=== PATIENT | male | born 1960 | race Caucasian/White ===

== ENCOUNTER 2018-09-24 07:08 | Outpatient (CLI) | payer OTHER ==
--- NOTE | 2018-09-24 07:42 | ULT ---
Sonogram right upper quadrant HISTORY: Right upper quadrant pain. FINDINGS: Nonshadowing echogenic sludge is present within the dependent portion of the gallbladder nas men. No gallbladder wall thickening or pericholecystic fluid. Common duct is 0.46. Liver is diffusely echogenic without focal mass or intrahepatic biliary dilatation. No free fluid. A 0.9 cm si mple cyst is incidentally noted along the anterior margin of the pancreatic neck IMPRESSION: Biliary sludge within the gallbladder. Evidence of a chronic gallbladder dyskinesis. No e vidence of acute biliary obstruction. Hepatosteatosis.
== END 2018-09-24 07:09 | disposition home or self-care (01) ==
LOC: SCSULT 07:08
PROVIDERS: ATTEND Family Medicine
DX: R10.13 Epigastric pain (principal); K83.8 Other specified diseases of biliary tract; K76.0 Fatty (change of) liver, not elsewhere classified
CPT/HCPCS: 76705

== ENCOUNTER 2018-10-02 12:11 | Outpatient (CLI) | payer OTHER ==
--- NOTE | 2018-10-02 16:50 | NM ---
HEPATOBILIARY SCAN: DATE: 10/02/18 HISTORY: Epigastric pain with sludge in the gallbladder on ultrasound of 09/24/18. RADIOPHARMACEUTICAL: 5.3 mCi technetium-99m mebrofenin injected intravenously. FINDINGS: There is good tracer extraction by the liver with prompt excretion into the biliary tract and small b owel loops, and normal filling of the gallbladder. The calculated gallbladder ejection fraction following an oral fatty meal measures 12%. IMPRESSION: Gallbladder dyskinesia/chronic acalculous cholecystitis. POS: OFF
== END 2018-10-02 12:12 | disposition home or self-care (01) ==
LOC: NM 12:11
PROVIDERS: ATTEND Family Medicine
DX: R10.13 Epigastric pain (principal); K82.8 Other specified diseases of gallbladder; K81.1 Chronic cholecystitis
CPT/HCPCS: 78227; A9537

== ENCOUNTER 2018-10-14 05:52 | Day surgery (SDC) | payer OTHER ==
[2018-10-13 13:15] VITALS: BMI 34.4
[2018-10-14] MEDS ORDERED: Ketorolac Tromethamine 30 MG/ML VIAL ONE (06:34)
[2018-10-14] MEDS ORDERED: Fentanyl 250 MCG/5 ML VIAL ONE (06:41)
[2018-10-14] MEDS ORDERED: Bupivacaine/Epinephrine 0.25% 30 ML VIAL ONE (06:46)
[2018-10-14] MEDS ORDERED: Iothalamate Meglumine 60% 50 ML VIAL FS ONE (08:07)
--- NOTE | 2018-10-14 08:40 | RAD ---
XR Cholangiogram in Surgery History: Epigastric pain Comparison: Nuclear medicine study September 2018 Findings: There is mild dilatation of the extrahepatic biliary system. Small filling defects distal c ommon bile duct. Impression: Small filling defects distal common bile duct. Mild extrahepatic biliary dilatation.
[2018-10-14] MEDS ORDERED: Fentanyl 100 MCG/2 ML VIAL ONE ×2 (09:27→09:28)
[2018-10-14] MEDS ORDERED: Ondansetron ODT 4 MG TAB ONE (11:03)
--- NOTE | 2018-10-14 18:06 | OP ---
DATE OF PROCEDURE: 10/14/2018 PREOPERATIVE DIAGNOSES: Symptomatic biliary sludge with biliary dyskinesia. POSTOPERATIVE DIAGNOSES: Symptomatic biliary sludge with biliary dyskinesia with dilated cystic duct. OPERATIONS PERFORMED: Laparoscopic cholecystectomy with intraoperative cholangiogram. ANESTHESIA: General endotracheal. INDICATIONS: The patient is a 58-year-old obese white male. He presents with symptoms referable to his gallbladder. Ultrasound reveals biliary sludge and HIDA scan reveals a diminished ejection fraction. He was taken to the operative room at this time for laparoscopic cholecystectomy. Although his bilirubin level is normal, he has mild elevation of his remaining liver function test. DESCRIPTION OF OPERATION: Informed consent was obtained, the patient was taken to the operating room, where general endotracheal anesthesia was obtained with the patient in supine position. Abdomen was prepped with ChloraPrep and draped in sterile fashion. Local anesthetic was infiltrated using 0.25% Marcaine with epinephrine and an 11-mm infraumbilical incision was created through which a Veress needle was passed in the peritoneal cavity. Pneumoperitoneum was established using carbon dioxide up to pressure of 15 mmHg. An 11 mm trocar port was passed through the same incision. Laparoscopic camera was passed this port. Under direct vision, 3 additional 5 mm right upper quadrant ports were placed in usual location. The gallbladder was grasped and retracted in a cephalad direction. Infundibulum was grasped retracted laterally and inferiorly. There was extensive fatty tissue around and investing the gallbladder. This was dissected in order to gain access to the cystic duct and cystic artery. I was able to identify and divide the cystic artery fairly quickly, leaving two clips on the side to remain within the abdomen. As I dissected further, the cystic duct appeared to be dilated. I therefore decided to perform a cholangiogram. Clip was placed proximally. The duct was incised and cholangiocath was passed through the ductotomy. Cholangiogram was obtained revealing at least a 2 inch long cystic duct that did not appear to be significantly dilated. The common duct; however, did appear to be dilated, although it emptied quickly into the duodenum. There was no evidence of any filling defects. The cystic duct appeared to have a little bulbous dilatation just distal to my ductotomy. I tried milking to see if there was any stones there that would milk retrograde, there were none. I carried the incision further down onto the duct and again the tissue appeared to be somewhat thickened, but there was no evidence of intraluminal abnormality. The duct was divided, leaving two clips on the distal aspect. I was not at all sure that this appropriately ligated the duct and I therefore ligated further with a PDS Endoloop tie. Because of difficulty in seeing this area, given all of the retroperitoneal fat in this area. I had to place an additional 5 mm port in the upper abdomen to allow visualization of this area. After the duct was ligated appropriately. The gallbladder was dissected the gallbladder fossa using electrocautery and removed through the umbilical port site. Fascia was closed with 0 Vicryl suture using a GraNee needle. Right upper quadrant was extensively irrigated. All irrigant was aspirated. There was no evidence of any bleeding or bile leak. All ports were removed under direct vision. Pneumoperitoneum carefully evacuated. A 0.25% Marcaine with epinephrine substrates port site. Skin edges approximated with 4-0 Monocryl subcuticular suture. Dermabond was placed externally over each of the 5 port site incisions. There were no complications. The patient tolerated the procedure well and was taken to recovery in stable condition. Job ID: [id number]
== END 2018-10-14 11:16 | disposition home or self-care (01) ==
LOC: SDC 05:52
PROVIDERS: ATTEND Specialist
PROC: 0FT44ZZ Resection of Gallbladder, Percutaneous Endoscopic Approach (ICD-10-PCS; principal; 2018-10-14)
PROC: BF101ZZ Fluoroscopy of Bile Ducts using Low Osmolar Contrast (ICD-10-PCS; principal; 2018-10-14)
DX: K81.1 Chronic cholecystitis (principal); K82.8 Other specified diseases of gallbladder; K83.8 Other specified diseases of biliary tract; E78.5 Hyperlipidemia, unspecified; I10 Essential (primary) hypertension; E03.9 Hypothyroidism, unspecified; N40.0 Benign prostatic hyperplasia without lower urinary tract symptoms; E66.9 Obesity, unspecified; Z68.34 Body mass index [BMI] 34.0-34.9, adult; Z79.899 Other long term (current) drug therapy; Z98.890 Other specified postprocedural states
CPT/HCPCS: 47532; 88304; J0131; J0690; J1885; J3010; Q0162; Q9961

== ENCOUNTER 2019-02-10 10:42 | Inpatient (IN) | payer OTHER ==
[2019-02-10] MEDS ORDERED: Morphine 4 MG/ML VIAL ONE ×2 (11:10→13:28)
[2019-02-10] MEDS ORDERED: Ondansetron PF 4 MG/2 ML Vial ONE (11:10)
--- NOTE | 2019-02-10 12:38 | ULT ---
RIGHT UPPER QUADRANT ULTRASOUND: HISTORY: Right upper quadrant pain. FINDINGS: Real-time imaging of the right upper quadrant shows the gallbladder to have been removed. The common duct is very difficult to visualize. The extrahepatic portion of the duct measures in the 1 cm range , which is compatible with post cholecystectomy change. The liver is densely echogenic without any fo marquez mass demonstrated. The right kidney is normal in size and not obstructed. IMPRESSION: 1. Postoperative cholecystectomy change with mild prominence to the extrahepatic common duct, probabl y just on the basis of cholecystectomy. 2. Fatty change of the liver. POS: MOIZ
[2019-02-10 13:09] LABS: ALT (SGPT) 580 U/L (8-55); AST (SGOT) 489 U/L (5-34); Albumin 4.7 g/dL (3.5-5.0); Alkaline Phosphatase 237 U/L (40-110); Bilirubin, Direct 3.7 mg/dL (0.1-0.3); Bilirubin, Total 5.4 mg/dL (0.2-1.2); Protein, Total 8.1 g/dL (6.0-8.3)
[2019-02-10 13:30] LABS: HBCM Index 0.05 S/CO (0-0.79); HBSAg Index 0.14 S/CO (0-0.99); Hep A IgM AB Non-Reactive (NonReactive); Hep A IgM S/CO 0.08 S/CO (0-0.79); Hep B Surf Ag Non-Reactive S/CO (NonReactive); Hep C IgG Ab Non-Reactive (NonReactive); Hep C Index 0.05 S/CO (0-0.79); Hepatitis B Core IgM Abs Non-Reactive (NonReactive)
[2019-02-10] MEDS ORDERED: Acetaminophen 325 MG TAB PO PRN (13:54)
--- NOTE | 2019-02-10 14:44 | HP ---
REASON FOR ADMISSION: 1. Possible choledocholithiasis. 2. Abdominal pain. 3. Moderate dehydration. 4. Elevated LFTs. HISTORY OF PRESENT ILLNESS: The patient gives history of having epigastric pain from yesterday morning off and on. This was progressively getting worse. It was colicky pain. He does mention that a week back, he had a small episode of colic which got resolved by itself. As this pain got worse this morning, he went to [facility] from where he was transferred here. He has had prior history of laparoscopic cholecystectomy done in October 2018. No prior history of pancreatitis. Mr. Plasencia also mentions that he has been dry heaving from Saturday morning and has not been eating well or drinking much. Last bowel movement was yesterday when he had nearly 4 episodes in the morning and none after that. He has not passed any flatus after yesterday afternoon. PAST MEDICAL AND SURGICAL HISTORY: 1. History of hypertension. 2. Dyslipidemia. 3. Hypothyroidism. 4. Benign prostatic hypertrophy. 5. GERD. 6. 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 7. Laparoscopic cholecystectomy in September 2018. 8. Dental surgeries. 9. Tonsillectomy. CURRENT MEDICATIONS: 1. He takes Synthroid 125 mcg p.o. daily. 2. Norvasc 5 mg p.o. q.p.m. 3. Flomax 0.4 mg p.o. q.p.m. 4. Pravastatin 40 mg p.o. daily. 5. Omeprazole 40 mg daily p.r.n. ALLERGIES: NO KNOWN DRUG ALLERGIES. PERSONAL HISTORY: He states he quit smoking recently. Does not abuse drugs. Drinks on social occasions. He lives alone. FAMILY HISTORY: Mother at the age of 79 years. Father of prostate cancer and its complications at the age of 86. CODE STATUS: Full. Power of senior trial attorney is his daughter, Ms. Marychuy Plasencia. She lives in [place]. REVIEW OF SYSTEMS: CONSTITUTIONAL: Negative for weight loss or gain, ability to conduct usual activities. SKIN: Negative for rash, itching. EYES: Negative for double vision, pain. ENT/MOUTH: Negative for nose bleeding, neck stiffness, pain, tenderness. CARDIOVASCULAR: Negative for palpitations, dyspnea on exertion, orthopnea. RESPIRATORY: Negative for shortness of breath, wheezing, cough, hemoptysis, fever or night sweats. GASTROINTESTINAL: Negative for poor appetite, abdominal pain, heartburn, nausea , vomiting, constipation, or diarrhea. GENITOURINARY: Negative for urgency, frequency, dysuria, nocturia. MUSCULOSKELETAL: Negative for pain, swelling. NEUROLOGIC/PSYCHIATRIC: Negative for anxiety, depression. ALLERGY/IMMUNOLOGIC: Negative for skin rash, bleeding tendency. PHYSICAL EXAMINATION: GENERAL: The patient is a 58-year-old male, who is currently in mild-to- moderate distress from abdominal colic. VITAL SIGNS: Blood pressure 136/84, pulse 86 per minute, respiratory rate 22 per minute, temperature 97.9 degrees Fahrenheit, saturating 91% on 4 L oxygen. NECK: Supple. No elevated JVD. HEENT: Eyes; extraocular muscles intact. Pupils reacting to light. Oral cavity, mucous membranes are dry. No exudates or congestion. CARDIOVASCULAR SYSTEM: S1-S2 heard. Regular rhythm. RESPIRATORY SYSTEM: Air entry 1+ bilateral. The patient has shallow breathing due to abdominal pain. No rales or rhonchi. ABDOMEN: Mildly distended. There is tenderness in the epigastric area. No rebound or guarding. EXTREMITIES: No peripheral edema or calf tenderness. VASCULAR SYSTEM: Peripheral pulses 1+ bilateral. No ischemic ulcerations or gangrene. CENTRAL NERVOUS SYSTEM: No gross focal deficits noted. The patient is alert, awake, oriented well. PSYCHIATRIC SYSTEM: The patient's mood is euthymic. No hallucinations or delusions. LABORATORY DATA: Sodium 136, serum bicarb 27, BUN 12, creatinine 0.9, total bilirubin 4.0, AST 479, ALT 575, alkaline phosphatase 243, direct bilirubin is 3.7, albumin is 4.7, lipase is 76. White count 11, hemoglobin 15, hematocrit 47, platelet count 373 with 83% neutrophils. D-dimer was 0.57. Acute hepatitis panel was negative. IMAGING STUDIES: CT angio chest done showed no evidence of PE. CT abdomen and pelvis without contrast done showed no acute pathology. Cholecystectomy clips in the gallbladder fossa. Liver showed no abnormalities. Right upper quadrant ultrasound done showed postop cholecystectomy change seen, mild prominence of extrahepatic common duct, it was measuring 1 cm in range, fatty change of liver. EKG done shows normal sinus rhythm at 94 beats per minute. CLINICAL IMPRESSION AND PLAN: The patient will be admitted to medical floor for possible acute choledocholithiasis with severe abdominal colic and elevated LFTs. His cholangiogram done after laparoscopic cholecystectomy in September 2018 showed small filling defects in the distal common bile duct. His imaging studies have not revealed significant common bile duct dilatation. Dr. Reuben Vallecillo has spoken to Dr. Julio César Olivas for Gastroenterology consultation. We will keep him n.p.o. He will be on morphine p.r.n. for pain. Gentle hydration with normal saline at 100 mL/ h. He will be kept n.p.o. except for Synthroid and Flomax. DuoNeb q.6 hourly. Please note the patient has not passed flatus from yesterday afternoon and has mild distention of his abdomen as well, this will be closely monitored. There are no obvious signs of small bowel obstruction on the CAT scan done. Job ID: [id number] [facility]
[2019-02-10] MEDS: Sodium Chloride 0.9% 1,000 ML IV SCH (15:13)
[2019-02-10] MEDS: Ondansetron PF 4 MG/2 ML Vial IVP PRN ×2 (15:13→22:27)
[2019-02-10 16:09] VITALS: BMI 21.5
[2019-02-10] MEDS ORDERED: Lorazepam 2 MG/ML VIAL SLOW IVP SCH (17:15)
--- NOTE | 2019-02-10 18:23 | MRI ---
MRI Abdomen WO Con History: Abdominal pain. Elevated LFTs Comparison: Ultrasound same day. CT same day Findings: MRI abdomen performed without the intravenous administration of contrast. 3-D rendering pro vided for MRCP. The common bile duct is mildly distended measuring up to 9 mm with a 3 mm stone near the ampulla. Low -grade intrahepatic biliary dilatation. Mild diffuse hepatic steatosis. T2 hyperintense mass along the volar aspect of the pancreatic head wh ich is exophytic measuring 12 mm without pancreatic ductal extension. No hydronephrosis. The proximal small bowel rotation appears normal. Mild atelectatic changes lung bases. No fluid collection within the gallbladder fossa. Impression: 1. Partially obstructing 3 mm common bile duct stone near the ampulla with mild intrahepatic and extr a hepatic biliary dilatation. 2. No fluid collection within the gallbladder fossa. 3. 12 mm T2 hyperintense mass along the volar aspect of the pancreatic head without pancreatic ductal extension. Pancreatic protocol MRI in 6 months recommended.
[2019-02-10] MEDS: cefTRIAXone\\ROCEPHIN 2 GM in Sodium Chloride 0.9% 100 ML IVPB SCH (19:12)
[2019-02-10] MEDS: Famotidine/PF 20 mg/2ml Vial SLOW IVP SCH (20:15)
[2019-02-10] MEDS: Tamsulosin HCl 0.4 MG CAP PO SCH (20:15)
--- NOTE | 2019-02-10 22:48 | CON ---
DATE OF CONSULTATION: 02/10/2019 CHIEF COMPLAINT: Abdominal pain. HISTORY OF PRESENT ILLNESS: Mr. Plasencia is a 58-year-old man who had onset of epigastric, severe cramping pain yesterday morning. He last ate Saturday night and has not eaten since then because he is afraid that it will worsen his pain. He has had nausea, but no vomiting associated with this. No diarrhea or constipation or blood in the stool. He had laparoscopic cholecystectomy back in October [address] Butler. He has had an episode of mildly elevated liver tests per his report drawn by his primary doctor, but then on recheck, his liver tests returned normal. His liver tests were normal at the time of his surgery. Now, on presentation to the emergency room, his alkaline phosphatase, bilirubin, and transaminases are all elevated. His lipase is normal. His pain went on all day yesterday and then throughout the day today and then about an hour ago, his pain improved. He did have intraoperative cholangiogram during the cholecystectomy. There was rapid emptying of the contrast from the common bile duct to the duodenum. No filling defects were noted at the time. Radiology review raises question of filling defects in the distal common bile duct. PAST MEDICAL HISTORY: Hypertension, hyperlipidemia, hypothyroidism, BPH, gastroesophageal reflux disease. PAST SURGICAL HISTORY: Laparoscopic cholecystectomy, tonsillectomy. He had radiation treatments to his neck for head and neck cancer, squamous cell. FAMILY HISTORY: Positive for prostate cancer in his father. SOCIAL HISTORY: He drinks maybe one or two weekends per month. Small amount at that time. No drugs. No smoking. ALLERGIES: NO KNOWN DRUG ALLERGIES. MEDICATIONS: Prior to admission; 1. Synthroid. 2. Norvasc. 3. Flomax. 4. Pravastatin. 5. Omeprazole. REVIEW OF SYSTEMS: Negative x10 systems reviewed except as stated in the history of present illness. PHYSICAL EXAMINATION: VITAL SIGNS: Temperature 98.4, pulse 89, blood pressure 136/70. GENERAL: He is in no acute distress. Alert and oriented x3. HEENT: Eyes have no scleral icterus. Oropharynx is clear without lesions. No cervical or supraclavicular lymphadenopathy. LUNGS: Clear to auscultation bilaterally. HEART: Regular rate and rhythm without murmur. ABDOMEN: Soft, nontender, and nondistended. Bowel sounds are present. EXTREMITIES: No lower extremity edema. LABORATORY DATA: Creatinine 0.98, bilirubin 5.4, AST 489, ALT 580, alkaline phosphatase 237, albumin 4.7. White blood cell count 11.4, hemoglobin 15.6, platelets 373. Viral hepatitis screen was negative for acute panel. IMPRESSION: Choledocholithiasis. He had normal liver function tests at the time of laparoscopic cholecystectomy. However, now he has a mixed hepatocellular injury in cholestatic pattern. There were possible filling defects noted in the distal common bile duct by intraoperative cholangiogram. He had an ultrasound that shows the bile duct to be stable at 1 cm today. RECOMMENDATIONS: 1. We will follow through with MRCP this evening. 2. Scheduled ERCP for tomorrow morning. 3. Cover with antibiotics with ceftriaxone and check blood cultures. Job ID: [id number]
[2019-02-11] MEDS: Sodium Chloride 0.9% 1,000 ML IV SCH ×3 (01:52→16:49)
[2019-02-11] MEDS: Ondansetron PF 4 MG/2 ML Vial IVP PRN ×2 (03:57→16:49)
[2019-02-11] MEDS: Ketorolac Tromethamine 30 MG/ML VIAL IVP PRN ×2 (04:32→21:08)
[2019-02-11 06:09] LABS: #Lymphocytes 0.5 thou/uL (1.20-3.40); #Monocytes 0.6 thou/uL (0.11-0.59); #Neutrophils 7.4 thou/uL (1.40-6.50); %Basophils 0.1 % (0.0-1.0); %Eosinophils 0.2 % (0.0-10.0); %Lymphocytes 6.2 % (21.0-51.0); %Monocytes 7.1 % (0.0-10.0); %Neutrophils 86.4 % (42.0-75.0); Hemoglobin 13.4 g/dL (14.0-18.0); Mean Corpuscular HGB CONC 33.4 g/dL (32.0-36.0); Mean Corpuscular Hemoglobin 31.7 pg (27.0-31.0); Mean Platelet Volume 6.5 fL (7.4-10.4); Platelet Count 304 thou/uL (130-400); RBC Distribution Width 14.2 % (11.5-14.5); Red Blood Cell (RBC) Count 4.21 mill/uL (4.70-6.10); White Blood Cell (WBC) Count 8.6 thou/uL (4.8-10.8)
[2019-02-11] MEDS: Levothyroxine Sodium 125 MCG TAB PO SCH (06:09)
[2019-02-11 06:33] LABS: ALT (SGPT) 395 U/L (8-55); AST (SGOT) 225 U/L (5-34); Albumin 3.9 g/dL (3.5-5.0); Alkaline Phosphatase 185 U/L (40-110); Anion Gap 11 mmol/L (10-20); BUN (Urea Nitrogen) 15 mg/dL (8.4-25.7); Bilirubin, Total 3.6 mg/dL (0.2-1.2); Calc. Creatinine Clearance 116 mL/min (70-130); Carbon Dioxide 28 mmol/L (22-29); Chloride 99 mmol/L (98-107); Estimated GFR-MDRD 82; Globulin 2.8 g/dL (2.4-3.5); Glucose 90 mg/dL (70-105); Potassium 3.9 mmol/L (3.5-5.1); Protein, Total 6.7 g/dL (6.0-8.3); Sodium 134 mmol/L (136-145)
[2019-02-11] MEDS ORDERED: FLU VACC QS2019-20(6MOS UP)/PF 60 MCG/0.5 ML SYRINGE IM ONE (09:00)
[2019-02-11] MEDS ORDERED: Enoxaparin Sodium 40 MG/0.4 ML SYRINGE SC SCH (09:00)
[2019-02-11] MEDS: Famotidine/PF 20 mg/2ml Vial SLOW IVP SCH ×2 (09:47→21:13)
--- NOTE | 2019-02-11 10:16 | PDOC.HOSPP ---
- Subjective Encounter Date: 02/11/19 Encounter Time: 10:14 Subjective: no fever, chills, abd pain - Objective Vital Signs & Weight: Vital Signs (12 hours) Temp Pulse Resp BP Pulse Ox 02/11/19 07:00 97.8 F 90 22 H 136/88 95 02/11/19 04:24 98.2 F 86 20 153/98 H 94 L Weight Weight 216 lb 0.848 oz Result Diagrams: 02/11/19 05:43 02/11/19 05:44 Hospitalist ROS - Medication Medications: Active Medications Generic Name Dose Route Start Last Admin Trade Name Freq PRN Reason Stop Dose Admin Famotidine 20 mg 02/10/19 21:00 02/11/19 09:47 Pepcid SLOW IVP 20 mg Q12HR LUIS Administration Sodium Chloride 1,000 mls @ 100 mls/hr 02/10/19 14:00 02/11/19 01:52 Normal Saline 0.9% IV 1,000 mls .Q10H LUIS Administration Ceftriaxone Sodium 2 gm/ 100 mls @ 200 mls/hr 02/10/19 18:00 02/10/19 19:12 Sodium Chloride IVPB 100 mls Q24HR LUIS Administration Ketorolac Tromethamine 15 mg 02/10/19 14:02 02/11/19 04:32 Toradol IVP 02/15/19 14:03 15 mg Q6H PRN Administration Pain Levothyroxine Sodium 125 mcg 02/11/19 06:00 02/11/19 06:09 Synthroid PO Not Given 0600 LUIS Ondansetron HCl 4 mg 02/10/19 13:54 02/11/19 03:57 Zofran IVP 4 mg Q6H PRN Administration Nausea/Vomiting Tamsulosin HCl 0.4 mg 02/10/19 21:00 02/10/19 20:15 Flomax PO 0.4 mg QPM LUIS Administration - Exam Eye: scleral icterus Neck: no JVD Heart: RRR, no murmur Respiratory: CTAB Gastrointestinal: soft, non-tender, non-distended, normal bowel sounds Extremities: no edema Hosp A/P (1) Choledocholithiasis Code(s): K80.50 - CALCULUS OF BILE DUCT W/O CHOLANGITIS OR CHOLECYST W/O OBST Status: Acute (2) Abdominal pain Code(s): R10.9 - UNSPECIFIED ABDOMINAL PAIN Status: Acute (3) HTN (hypertension) Code(s): I10 - ESSENTIAL (PRIMARY) HYPERTENSION Status: Chronic Qualifiers: Hypertension type: essential hypertension Qualified Code(s): I10 - Essential (primary) hypertension (4) Jaundice Code(s): R17 - UNSPECIFIED JAUNDICE Status: Acute - Plan ERCP today- FU
[2019-02-11] MEDS ORDERED: Indomethacin 50 MG SUPP ONE (13:28)
[2019-02-11] MEDS ORDERED: Iothalamate Meglumine 60% 50 ML VIAL FS ONE (13:28)
[2019-02-11] MEDS ORDERED: Fentanyl 100 MCG/2 ML VIAL ONE ×2 (13:35→16:04)
[2019-02-11] MEDS ORDERED: cefTRIAXone\\ROCEPHIN 2 GM VIAL ONE (13:37)
[2019-02-11] MEDS ORDERED: Sodium Chloride 0.9% 100 ML ONE (13:37)
--- NOTE | 2019-02-11 15:45 | RAD ---
ERCP: 02/11/19 HISTORY: Biliary stones. These images show filling of a nondilated common bile duct. A total of three images are presented. On image #2, there is a questionable filling defect in the mid common duct. Not definitely confirmed on the other views. The ampullary region is never demonstrated on these films. IMPRESSION: Questionable filling defect in the mid common bile duct seen on only one of these three views. POS: TPC
[2019-02-11] MEDS ORDERED: Albuterol Sulfate 1.25 MG/3 ML NEB ONE (15:59)
--- NOTE | 2019-02-11 16:36 | OP ---
DATE OF PROCEDURE: 02/11/2019 PROCEDURES PERFORMED: Endoscopic retrograde cholangiopancreatography with papillotomy and stone extraction. PREMEDICATION: Given by Anesthesiology Department. PREPROCEDURE DIAGNOSIS: Choledocholithiasis on magnetic resonance cholangiopancreatography. POSTPROCEDURE DIAGNOSIS: Choledocholithiasis. DESCRIPTION OF PROCEDURE: Written consents obtained prior to procedure. After adequate sedation, the side-viewing endoscope was advanced down the stomach through the pylorus into the duodenum. The ampulla was visualized and appeared to be small. Selective cannulation of common bile duct was very difficult. However, using a 0.035 mm guidewire, the duct was able to cannulate. Injection contrast showed a uniformly duct size measuring approximately 8 mm. A single filling defect was seen at the very distal tip of the common bile duct. A generous papillotomy was performed at 12 o'clock position with good hemostasis. A 9 mm balloon was then used to sweep the duct. Despite a generous papillotomy, the ampullary outlet remains tight. A single black stone was able to be evacuated. Occlusive cholangiogram was then performed, it was normal. There was excretion of contrast after removal of the balloon. The instrument was then fully removed. The patient tolerated the procedure well. ASSESSMENT: Choledocholithiasis, status post sphincterotomy and extraction. RECOMMENDATION: Transferred back to floor and restart diet. Job ID: [id number]
[2019-02-11] MEDS: Morphine 2 MG/ML SYRINGE SLOW IVP PRN ×2 (18:27→22:36)
[2019-02-11] MEDS: cefTRIAXone\\ROCEPHIN 2 GM in Sodium Chloride 0.9% 100 ML IVPB SCH (18:28)
[2019-02-11] MEDS: Tamsulosin HCl 0.4 MG CAP PO SCH (21:13)
[2019-02-12] MEDS: Sodium Chloride 0.9% 1,000 ML IV SCH ×2 (02:59→16:58)
[2019-02-12] MEDS: Levothyroxine Sodium 125 MCG TAB PO SCH (05:25)
[2019-02-12 06:28] LABS: #Lymphocytes 0.5 thou/uL (1.20-3.40); #Monocytes 0.4 thou/uL (0.11-0.59); #Neutrophils 3.7 thou/uL (1.40-6.50); %Eosinophils 1.1 % (0.0-10.0); %Lymphocytes 9.9 % (21.0-51.0); %Neutrophils 80.1 % (42.0-75.0); Hemoglobin 12.8 g/dL (14.0-18.0); Mean Corpuscular HGB CONC 33.9 g/dL (32.0-36.0); Mean Corpuscular Volume 94.3 fL (78.0-98.0); Platelet Count 255 thou/uL (130-400); RBC Distribution Width 14.1 % (11.5-14.5); White Blood Cell (WBC) Count 4.6 thou/uL (4.8-10.8)
[2019-02-12 06:45] LABS: ALT (SGPT) 276 U/L (8-55); AST (SGOT) 148 U/L (5-34); Albumin 3.5 g/dL (3.5-5.0); Alkaline Phosphatase 201 U/L (40-110); Anion Gap 10 mmol/L (10-20); BUN (Urea Nitrogen) 11 mg/dL (8.4-25.7); Bilirubin, Total 2.7 mg/dL (0.2-1.2); Calc. Creatinine Clearance 138 mL/min (70-130); Calcium 8.8 mg/dL (7.8-10.44); Carbon Dioxide 27 mmol/L (22-29); Chloride 99 mmol/L (98-107); Estimated GFR-MDRD Greater than 90; Globulin 2.9 g/dL (2.4-3.5); Glucose 97 mg/dL (70-105); Potassium 3.8 mmol/L (3.5-5.1); Protein, Total 6.4 g/dL (6.0-8.3); Sodium 132 mmol/L (136-145)
[2019-02-12] MEDS: Famotidine/PF 20 mg/2ml Vial SLOW IVP SCH ×2 (08:34→20:46)
[2019-02-12] MEDS: Enoxaparin Sodium 40 MG/0.4 ML SYRINGE SC SCH (08:34)
--- NOTE | 2019-02-12 09:12 | PDOC.HOSPP ---
- Subjective Encounter Date: 02/12/19 Encounter Time: 09:11 Subjective: doing well, home when ok with GI - Objective Vital Signs & Weight: Vital Signs (12 hours) Temp Pulse Resp BP Pulse Ox 02/12/19 08:23 97.9 F 84 20 152/94 H 96 02/12/19 04:00 98.2 F 85 18 148/90 H 96 02/11/19 23:54 98.2 F 91 18 145/88 H 96 02/11/19 21:13 95 Weight Weight 216 lb 0.848 oz I&O: 02/11/19 02/12/19 02/13/19 06:59 06:59 06:59 Intake Total 1680 Output Total 975 Balance 705 Result Diagrams: 02/12/19 06:00 02/12/19 06:00 Hospitalist ROS - Medication Medications: Active Medications Generic Name Dose Route Start Last Admin Trade Name Freq PRN Reason Stop Dose Admin Enoxaparin Sodium 40 mg 02/12/19 09:00 02/12/19 08:34 Lovenox SC 40 mg 0900 LUIS Administration Famotidine 20 mg 02/10/19 21:00 02/12/19 08:34 Pepcid SLOW IVP 20 mg Q12HR LUIS Administration Sodium Chloride 1,000 mls @ 100 mls/hr 02/10/19 14:00 02/12/19 02:59 Normal Saline 0.9% IV 1,000 mls .Q10H LUIS Administration Ceftriaxone Sodium 2 gm/ 100 mls @ 200 mls/hr 02/10/19 18:00 02/11/19 18:28 Sodium Chloride IVPB 100 mls Q24HR LUIS Administration Ketorolac Tromethamine 15 mg 02/10/19 14:02 02/11/19 21:08 Toradol IVP 02/15/19 14:03 15 mg Q6H PRN Administration Pain Levothyroxine Sodium 125 mcg 02/11/19 06:00 02/12/19 05:25 Synthroid PO 125 mcg 0600 LUIS Administration Morphine Sulfate 2 mg 02/10/19 14:02 02/11/19 22:36 Morphine SLOW IVP 2 mg Q4H PRN Administration Pain Ondansetron HCl 4 mg 02/10/19 13:54 02/11/19 16:49 Zofran IVP 4 mg Q6H PRN Administration Nausea/Vomiting Tamsulosin HCl 0.4 mg 02/10/19 21:00 02/11/19 21:13 Flomax PO 0.4 mg QPM LUIS Administration - Exam Neck: no JVD Heart: RRR, no murmur Respiratory: CTAB Gastrointestinal: soft, non-tender, normal bowel sounds Extremities: no edema Hosp A/P (1) Choledocholithiasis Code(s): K80.50 - CALCULUS OF BILE DUCT W/O CHOLANGITIS OR CHOLECYST W/O OBST Status: Acute (2) Abdominal pain Code(s): R10.9 - UNSPECIFIED ABDOMINAL PAIN Status: Acute (3) HTN (hypertension) Code(s): I10 - ESSENTIAL (PRIMARY) HYPERTENSION Status: Chronic Qualifiers: Hypertension type: essential hypertension Qualified Code(s): I10 - Essential (primary) hypertension (4) Jaundice Code(s): R17 - UNSPECIFIED JAUNDICE Status: Acute - Plan post ERCP with successfull intervention hepatic profile declining advance diet home when ok with GI
--- NOTE | 2019-02-12 16:09 | PRG ---
DATE OF SERVICE: 02/12/2019 SUBJECTIVE: Mr. Plasencia is without complaint. He denies having abdominal pain. He is tolerating clear liquids. PHYSICAL EXAMINATION: VITAL SIGNS: Temperature is 98.1, blood pressure 132/78, pulse of 87. GENERAL: He is alert, conversant, in no distress. HEENT: Anicteric sclerae. CV: Normal S1, S2. Regular rate and rhythm. CHEST: Breath sound. ABDOMEN: Protuberant, but soft and nontender. He has active bowel sounds. EXTREMITIES: No edema. LABORATORY DATA: WBCs 4.6, hemoglobin 12.8, and platelet count of 255. Electrolytes within normal range. Creatinine 0.79, bilirubin is down to 2.7, AST 148, ALT 276, alkaline phosphatase 201. ASSESSMENT: Choledocholithiasis, status post extraction with ERCP and sphincterotomy yesterday. Liver profile is trending down. No evidence of cholangitis. Blood culture remain negative at 48 hours. RECOMMENDATION: 1. The patient can be advanced to regular diet. 2. If tolerates, can be discharged to home tomorrow without any need for antibiotics. 3. GI will sign off for now. Please call for any questions. Job ID: [id number]
[2019-02-12] MEDS: cefTRIAXone\\ROCEPHIN 2 GM in Sodium Chloride 0.9% 100 ML IVPB SCH (16:50)
[2019-02-12] MEDS: Tamsulosin HCl 0.4 MG CAP PO SCH (20:45)
[2019-02-13] MEDS: Sodium Chloride 0.9% 1,000 ML IV SCH ×2 (00:25→08:06)
[2019-02-13] MEDS: Ketorolac Tromethamine 30 MG/ML VIAL IVP PRN (00:28)
[2019-02-13] MEDS: Levothyroxine Sodium 125 MCG TAB PO SCH (05:16)
[2019-02-13] MEDS: Famotidine/PF 20 mg/2ml Vial SLOW IVP SCH (08:06)
[2019-02-13] MEDS: Enoxaparin Sodium 40 MG/0.4 ML SYRINGE SC SCH (08:06)
[2019-02-13] MEDS ORDERED: Amlodipine 5 MG TAB PO SCH (09:15)
[2019-02-13 11:11] LABS: ALT (SGPT) 226 U/L (8-55); AST (SGOT) 79 U/L (5-34); Alkaline Phosphatase 232 U/L (40-110); Anion Gap 11 mmol/L (10-20); BUN (Urea Nitrogen) 8 mg/dL (8.4-25.7); Bilirubin, Total 0.9 mg/dL (0.2-1.2); Calc. Creatinine Clearance 153 mL/min (70-130); Calcium 9.6 mg/dL (7.8-10.44); Carbon Dioxide 29 mmol/L (22-29); Chloride 99 mmol/L (98-107); Estimated GFR-MDRD Greater than 90; Globulin 3.4 g/dL (2.4-3.5); Glucose 98 mg/dL (70-105); Potassium 3.6 mmol/L (3.5-5.1); Protein, Total 7.4 g/dL (6.0-8.3); Sodium 135 mmol/L (136-145)
[2019-02-13] MEDS ORDERED: Bisacodyl 10 MG SUPP PR SCH (11:15)
--- NOTE | 2019-02-13 11:31 | PDOC.EVN ---
Event Note - Event Note Event Note: Discharged home. #[id number]
[2019-02-13 11:58] VITALS: BP 144/76; TEMP 98.2
--- NOTE | 2019-02-13 12:17 | DIS ---
DATE OF ADMISSION: 02/10/2019 DATE OF DISCHARGE: 02/13/2019 PRIMARY CARE PHYSICIAN: Koko Zafar MD DISCHARGE DIAGNOSES: 1. Choledocholithiasis. 2. Acute abdominal pain. 3. Hypertension. 4. Biliary obstruction with jaundice. 5. Pancreatic head mass. 6. Abnormal LFTs. 7. Benign prostatic hypertrophy. 8. Hypothyroidism. CONSULT: Gastroenterology. PROCEDURE PERFORMED: Endoscopic retrograde cholangiopancreatography with papillotomy and stone extraction. HOSPITAL COURSE: A 58-year-old male patient with known history of hypertension, hypothyroidism, and recent laparoscopic cholecystectomy about 3 months ago, admitted with acute onset of epigastric crampy abdominal pain associated with nausea and vomiting. The patient did have intraoperative cholangiogram during his cholecystectomy which showed some filling defect in the common bile duct. Further evaluation here with MRCP was suggestive of choledocholithiasis. GI consult was obtained and the patient subsequently had ERCP with stone extraction. Post ERCP, liver enzymes were trending down and abdominal pain resolved and patient was tolerating oral intake without nausea, vomiting, or abdominal pain. He remained stable and was subsequently discharged home. Prior to ERCP, patient was started on antibiotics given biliary obstruction, but GI recommended discontinuation of antibiotics following ERCP. The patient also was found to have acute elevation in BP, which was thought to be related to crystalloid therapy and holding of usual antihypertensives. Crystalloids were discontinued and usual antihypertensives were restarted with improvement in blood pressure. The patient also was found to have constipation, which improved following Dulcolax suppository. He is to follow with PCP in 1 week. Of note, also the MRI of the abdomen showed pancreatic head mass and radiologist recommended MRI dedicated for pancreatic examination in 6 months. PHYSICAL EXAMINATION: VITAL SIGNS: Temperature 98.3, pulse 91, respiratory rate 18, SpO2 of 94 on room air, blood pressure 172/92. GENERAL: Male patient, in no distress. Afebrile. Anicteric. Acyanotic. HEENT: Normocephalic, atraumatic. Oral mucosa is moist. CARDIOVASCULAR: Regular rhythm and rate with normal heart sounds 1 and 2. RESPIRATORY: Good air entry bilaterally with no crackle or rhonchi or use of accessory muscles. GI: Obese, soft, nontender, nondistended with normal bowel sounds. EXTREMITIES: Grossly normal looking, atraumatic with no edema or erythema. Distal pulses are palpable. CHEMICAL LABORATORY CHIEF: Conscious, alert, oriented x3 with appropriate mental status. Cranial nerves 2 through 12 are grossly intact. The patient is ambulant. DISCHARGE DISPOSITION: Home. DISCHARGE CONDITION: Improved. DISCHARGE MEDICATIONS: 1. Omeprazole 40 mg q.2 days. 2. Amlodipine 5 mg p.o. b.i.d. 3. Budesonide/formoterol (Symbicort 160/4.5 two puffs inhalation p.r.n). 4. Cyanocobalamin 1000 mcg p.o. daily. 5. Levothyroxine 125 mcg p.o. daily. 6. Pravastatin 40 mg p.o. daily at bedtime. 7. Flomax 0.4 mg p.o. daily at bedtime. 8. Acetaminophen 650 q.4 hours p.r.n. for pain. FOLLOWUP: With PCP in [address] Whaley in 4 to 6 weeks. It is recommended, the patient should have pancreatic protocol MRI in 6 months for evaluation of 12 mm hyperintense mass noticed along the pancreatic head. This discharge took more than 36 minutes. Job ID: [id number]
== END 2019-02-13 13:00 | disposition home or self-care (01) | DRG 446 ==
LOC: ERS 10:42 → T4-B 14:51
PROVIDERS: ADMIT Internal Medicine; ATTEND Internal Medicine
PROC: 0FC98ZZ Extirpation of Matter from Common Bile Duct, Via Natural or Artificial Opening Endoscopic (ICD-10-PCS; principal; 2019-02-10)
PROC: BF131ZZ Fluoroscopy of Gallbladder and Bile Ducts using Low Osmolar Contrast (ICD-10-PCS; 2019-02-10)
PROC: 0F798ZZ Dilation of Common Bile Duct, Via Natural or Artificial Opening Endoscopic (ICD-10-PCS; 2019-02-10)
DX: K80.51 Calculus of bile duct without cholangitis or cholecystitis with obstruction (principal); E86.0 Dehydration; R79.89 Other specified abnormal findings of blood chemistry; I10 Essential (primary) hypertension; E78.5 Hyperlipidemia, unspecified; E03.9 Hypothyroidism, unspecified; N40.0 Benign prostatic hyperplasia without lower urinary tract symptoms; K21.9 Gastro-esophageal reflux disease without esophagitis; Z79.899 Other long term (current) drug therapy; Z90.49 Acquired absence of other specified parts of digestive tract; Z87.891 Personal history of nicotine dependence
CPT/HCPCS: 36415; 74181; 74330; 76705; 80053; 80074; 85025; 87040; 96361; 96374; 96375; 96376; C1769; J0696; J1650; J1885; J2060; J2270; J2405; J3010; J3490; S0028

== ENCOUNTER 2019-07-23 13:36 | Outpatient (CLI) | payer OTHER | END 2019-07-23 13:37 | disposition home or self-care (01) | LOC: SCSMRI 13:36 | PROVIDERS: ATTEND Family Medicine | DX: K86.89 Other specified diseases of pancreas (principal) | CPT/HCPCS: 82565 ==

== ENCOUNTER 2020-05-30 12:45 | Outpatient (CLI) | payer OTHER | END 2020-05-30 12:46 | disposition home or self-care (01) | LOC: DTY/OP 12:45 | PROVIDERS: ATTEND Family Medicine | DX: Z68.36 Body mass index [BMI] 36.0-36.9, adult (principal) | CPT/HCPCS: 97802 ==

== ENCOUNTER 2022-01-04 14:05 | Outpatient (CLI) | payer OTHER | END 2022-01-04 14:06 | disposition home or self-care (01) | LOC: BICMAMMO 14:05 | PROVIDERS: ATTEND Family Medicine | DX: N63.41 Unspecified lump in right breast, subareolar (principal) | CPT/HCPCS: 77066; G0279 ==

== ENCOUNTER 2022-12-19 10:56 | Outpatient (CLI) | payer OTHER | END 2022-12-19 10:57 | disposition home or self-care (01) | LOC: BICULT 10:56 | PROVIDERS: ATTEND Physician Assistant Medical | DX: K86.89 Other specified diseases of pancreas (principal); R79.89 Other specified abnormal findings of blood chemistry; F41.9 Anxiety disorder, unspecified; R11.2 Nausea with vomiting, unspecified; K76.0 Fatty (change of) liver, not elsewhere classified | CPT/HCPCS: 76700 ==

== ENCOUNTER 2024-12-04 18:36 | Inpatient (IN) | payer MEDICARE ==
[~2024-12-04 18:36] MED LIST: Iopamidol-370 76% 500 ML MDV (1 ML CHARGE) ONE
[2024-12-04 19:09] LABS: Hematocrit 36.4 % (42.0-52.0); Hemoglobin 12.1 g/dL (14.0-18.0); Mean Corpuscular Hemoglobin 32.9 pg (27.0-31.0); Mean Corpuscular Volume 98.9 fL (78.0-98.0); Platelet Count 358 10x3/uL (130-400); Red Blood Cell (RBC) Count 3.68 mill/uL (4.70-6.10); White Blood Cell (WBC) Count 30.26 10x3/uL (4.8-10.8)
[2024-12-04] MEDS ORDERED: Cefepime 2 GM VIAL ONE (19:13)
[2024-12-04] MEDS ORDERED: Hydrocortisone Sod Succ/PF 100 mg/2 ml Vial ONE (19:13)
[2024-12-04 19:19] LABS: ALT (SGPT) 37 U/L (Less than 45); AST (SGOT) 40 U/L (11-34); Albumin 2.5 g/dL (3.1-4.5); Alkaline Phosphatase 88 U/L (40-110); Anion Gap 19 mmol/L (10-20); BUN (Urea Nitrogen) 21 mg/dL (8.4-25.7); Bilirubin, Total 1.2 mg/dL (0.3-1.2); CK (CPK) 392 U/L (30-200); Calc. Creatinine Clearance 0 mL/min (70-130); Calcium 8.8 mg/dL (7.8-10.44); Carbon Dioxide 27 mmol/L (23-31); Chloride 95 mmol/L (98-107); Globulin 3.4 g/dL (2.4-3.5); Glucose 76 mg/dL (80-115); Lipase 19 U/L (8-78); Potassium 4.2 mmol/L (3.5-5.1); Sodium 137 mmol/L (136-145)
[2024-12-04 19:23] LABS: Troponin I 0.086 ng/mL (< 0.028)
[2024-12-04 19:25] LABS: Macrocytosis SLIGHT = 6-15 cells HPF (0-5); Platelet Adequacy Comment Platelets Normal; Polychromasia SLIGHT = 2-3 cells HPF (0-2); Smudge Cells 1.0 %; Stomatocytes SLIGHT = 2-5 cells HPF (0-1)
[2024-12-04] MEDS ORDERED: Vancomycin 1 GM/200 ML (FROZEN) BAG ONE (21:02)
[2024-12-04 22:56] LABS: Troponin I 0.068 ng/mL (< 0.028)
[2024-12-05] MEDS ORDERED: Calcium Carbonate 500 MG ChewTAB PO PRN (00:14)
[2024-12-05] MEDS ORDERED: Senokot S 8.6-50 MG TAB PO PRN (00:14)
[2024-12-05] MEDS ORDERED: NOREPINEPHRINE 8 MG/250 ML-D5W 250 ML IVPB SCH (00:30)
[2024-12-05 03:43] LABS: ALT (SGPT) 11 U/L (Less than 45); AST (SGOT) 45 U/L (11-34); Albumin 2.6 g/dL (3.1-4.5); Alkaline Phosphatase 93 U/L (40-110); Anion Gap 17 mmol/L (10-20); BUN (Urea Nitrogen) 28 mg/dL (8.4-25.7); Bilirubin, Total 0.8 mg/dL (0.3-1.2); CK (CPK) 554 U/L (30-200); Calc. Creatinine Clearance 0 mL/min (70-130); Calcium 9.4 mg/dL (7.8-10.44); Carbon Dioxide 27 mmol/L (23-31); Chloride 96 mmol/L (98-107); Globulin 3.6 g/dL (2.4-3.5); Glucose 140 mg/dL (80-115); Magnesium 1.6 mg/dL (1.6-2.6); Potassium 4.5 mmol/L (3.5-5.1); Sodium 135 mmol/L (136-145)
[2024-12-05 03:45] VITALS: BMI 29.8
[2024-12-05] MEDS: NOREPINEPHRINE 8 MG/250 ML-D5W 250 ML ONE (03:53)
[2024-12-05 03:58] LABS: Hematocrit 36.5 % (42.0-52.0); Hemoglobin 12.1 g/dL (14.0-18.0); Mean Corpuscular Hemoglobin 32.1 pg (27.0-31.0); Mean Corpuscular Volume 96.8 fL (78.0-98.0); Platelet Count 309 10x3/uL (130-400); Red Blood Cell (RBC) Count 3.77 mill/uL (4.70-6.10); White Blood Cell (WBC) Count 29.53 10x3/uL (4.8-10.8)
[2024-12-05 04:30] LABS: Platelet Adequacy Comment Platelets Normal; RBC Morphology Within Normal Limits; Smudge Cells 4.0 %
[2024-12-05 04:49] LABS: Bacteria/HPF None Seen HPF (None Seen); CAUTI Indications for Culture Fever or rigors; Glucose, Urine (Dipstick) 70 mg/dL (Negative); Leukocyte Negative Leu/uL (Negative); Protein, Urine (Dipstick) 70 mg/dL (Neg-Trace); RBC/HPF 0-3 HPF (0-3); Specific Gravity, Urine 1.045 (1.002-1.036); WBC/HPF None Seen HPF (0-3)
[2024-12-05 04:50] LABS: Urine Culture Reflex No No
[2024-12-05] MEDS: Albumin 25% 25 GM (100 mL) BOT IVPB SCH (06:05)
[2024-12-05 06:52] LABS: Vancomycin, Random 14.4 ug/mL (See Comment)
[2024-12-05] MEDS: Acetaminophen 325 MG TAB PO PRN (07:29)
[2024-12-05] MEDS: Magnesium 2 GM/50 ML(in water) 2 GM in Premix 1 BAG IVPB SCH (07:29)
[2024-12-05] MEDS: Enoxaparin 40 MG (0.4 mL) SYRINGE SC SCH (09:02)
[2024-12-05] MEDS: Aspirin 81 mg Enteric Coated Tablet PO SCH (09:02)
[2024-12-05] MEDS: Mupirocin 1 GM TUBE TP SCH (09:02)
[2024-12-05] MEDS: Pantoprazole 40 MG VIAL IVP SCH (09:02)
[2024-12-05] MEDS: Vancomycin 1 GM in Premix 1 BAG IVPB SCH (12:24)
[2024-12-05] MEDS: Rosuvastatin 20 MG TAB PO SCH (20:14)
[2024-12-05] MEDS: Mirtazapine 15 MG TAB PO SCH (20:15)
[2024-12-05] MEDS ORDERED: Vancomycin 1 GM in Premix 1 BAG IVPB SCH (21:00)
[2024-12-06 04:32] LABS: #Basophils Less than 0.03 10x3/uL (0.0-0.2); #Eosinophils Less than 0.03 10x3/uL (0.0-0.7); #Monocytes 0.19 10x3/uL (0.11-0.59); #Neutrophils 17.50 10x3/uL (1.40-6.50); %Basophils 0.1 % (0.0-1.0); %Eosinophils 0.0 % (0.0-10.0); %Lymphocytes 3.0 % (21.0-51.0); %Monocytes 1.0 % (0.0-10.0); %Neutrophils 94.9 % (42.0-75.0); Hematocrit 25.5 % (42.0-52.0); Hemoglobin 8.6 g/dL (14.0-18.0); Mean Corpuscular Hemoglobin 32.3 pg (27.0-31.0); Mean Corpuscular Volume 95.9 fL (78.0-98.0); Platelet Count 205 10x3/uL (130-400); Red Blood Cell (RBC) Count 2.66 mill/uL (4.70-6.10); White Blood Cell (WBC) Count 18.45 10x3/uL (4.8-10.8)
[2024-12-06 04:43] LABS: Anion Gap 16 mmol/L (10-20); BUN (Urea Nitrogen) 27 mg/dL (8.4-25.7); Calc. Creatinine Clearance 65 mL/min (70-130); Calcium 9.4 mg/dL (7.8-10.44); Carbon Dioxide 28 mmol/L (23-31); Chloride 97 mmol/L (98-107); Glucose 166 mg/dL (80-115); Magnesium 2.3 mg/dL (1.6-2.6); Potassium 3.2 mmol/L (3.5-5.1); Sodium 138 mmol/L (136-145)
[2024-12-06 04:45] LABS: Vancomycin, Random 15.2 ug/mL (See Comment)
[2024-12-07 04:44] LABS: #Basophils Less than 0.03 10x3/uL (0.0-0.2); #Eosinophils Less than 0.03 10x3/uL (0.0-0.7); #Monocytes 0.43 10x3/uL (0.11-0.59); #Neutrophils 18.07 10x3/uL (1.40-6.50); %Basophils 0.1 % (0.0-1.0); %Eosinophils 0.0 % (0.0-10.0); %Lymphocytes 2.3 % (21.0-51.0); %Monocytes 2.3 % (0.0-10.0); %Neutrophils 94.5 % (42.0-75.0); Hematocrit 26.1 % (42.0-52.0); Hemoglobin 8.8 g/dL (14.0-18.0); Mean Corpuscular Hemoglobin 32.6 pg (27.0-31.0); Mean Corpuscular Volume 96.7 fL (78.0-98.0); Platelet Count 196 10x3/uL (130-400); Red Blood Cell (RBC) Count 2.70 mill/uL (4.70-6.10); White Blood Cell (WBC) Count 19.10 10x3/uL (4.8-10.8)
[2024-12-07 04:59] LABS: Anion Gap 12 mmol/L (10-20); BUN (Urea Nitrogen) 22 mg/dL (8.4-25.7); Calc. Creatinine Clearance 82 mL/min (70-130); Calcium 9.8 mg/dL (7.8-10.44); Carbon Dioxide 31 mmol/L (23-31); Chloride 97 mmol/L (98-107); Glucose 155 mg/dL (80-115); Potassium 2.9 mmol/L (3.5-5.1); Sodium 137 mmol/L (136-145)
[2024-12-07 05:00] LABS: Magnesium 2.1 mg/dL (1.6-2.6)
[2024-12-07 16:30] LABS: Potassium 3.4 mmol/L (3.5-5.1)
[2024-12-07 22:54] LABS: Potassium 3.5 mmol/L (3.5-5.1)
[2024-12-07] MEDS: Melatonin 3 MG TAB PO PRN (22:57)
[2024-12-08 05:19] LABS: Vancomycin, Random 16.1 ug/mL (See Comment)
[2024-12-08 05:23] LABS: Calc. Creatinine Clearance 97.0 mL/min (70-130)
[2024-12-08] MEDS: Potassium Bicarbonate/Cit Ac 20 MEQ TAB PER TUBE SCH (08:39)
[2024-12-08] MEDS: Famotidine 20 MG TAB PO SCH (08:39)
[2024-12-08 08:55] LABS: #Basophils 0.05 10x3/uL (0.0-0.2); #Eosinophils Less than 0.03 10x3/uL (0.0-0.7); #Monocytes 0.18 10x3/uL (0.11-0.59); #Neutrophils 19.31 10x3/uL (1.40-6.50); %Basophils 0.2 % (0.0-1.0); %Eosinophils 0.0 % (0.0-10.0); %Lymphocytes 3.0 % (21.0-51.0); %Monocytes 0.9 % (0.0-10.0); %Neutrophils 95.0 % (42.0-75.0); Hematocrit 32.8 % (42.0-52.0); Hemoglobin 10.9 g/dL (14.0-18.0); Mean Corpuscular Hemoglobin 32.0 pg (27.0-31.0); Mean Corpuscular Volume 96.2 fL (78.0-98.0); Platelet Count 211 10x3/uL (130-400); Red Blood Cell (RBC) Count 3.41 mill/uL (4.70-6.10); White Blood Cell (WBC) Count 20.35 10x3/uL (4.8-10.8)
[2024-12-08 09:10] LABS: ALT (SGPT) 34 U/L (Less than 45); AST (SGOT) 31 U/L (11-34); Albumin 3.4 g/dL (3.1-4.5); Alkaline Phosphatase 102 U/L (40-110); Anion Gap 14 mmol/L (10-20); BUN (Urea Nitrogen) 15 mg/dL (8.4-25.7); Bilirubin, Total 0.9 mg/dL (0.3-1.2); Calc. Creatinine Clearance 98 mL/min (70-130); Calcium 10.8 mg/dL (7.8-10.44); Carbon Dioxide 36 mmol/L (23-31); Chloride 91 mmol/L (98-107); Globulin 3.9 g/dL (2.4-3.5); Glucose 100 mg/dL (80-115); Lipase 56 U/L (8-78); Potassium 3.4 mmol/L (3.5-5.1); Sodium 138 mmol/L (136-145)
[2024-12-08] MEDS: Ondansetron PF 4 MG/2 ML Vial IVP PRN (09:43)
[2024-12-08] MEDS ORDERED: Vancomycin 1.5 GRAM/300 ML BAG 1.5 GM in Premix 1 BAG IVPB SCH (12:00)
[2024-12-09 05:29] LABS: Hematocrit 30.4 % (42.0-52.0); Hemoglobin 9.9 g/dL (14.0-18.0); Mean Corpuscular Hemoglobin 31.4 pg (27.0-31.0); Mean Corpuscular Volume 96.5 fL (78.0-98.0); Platelet Count 210 10x3/uL (130-400); Red Blood Cell (RBC) Count 3.15 mill/uL (4.70-6.10); White Blood Cell (WBC) Count 10.69 10x3/uL (4.8-10.8)
[2024-12-09 06:01] LABS: Platelet Adequacy Comment Platelets Normal; RBC Morphology Within Normal Limits; Smudge Cells 2.0 %
[2024-12-09] MEDS: predniSONE 20 MG TAB PO SCH (08:37)
[2024-12-09] MEDS: Metoprolol Tartrate 5 MG (5 mL) VIAL IVP SCH (20:26)
[2024-12-10 04:08] LABS: Hematocrit 31.1 % (42.0-52.0); Hemoglobin 10.4 g/dL (14.0-18.0); Mean Corpuscular Hemoglobin 33.0 pg (27.0-31.0); Mean Corpuscular Volume 98.7 fL (78.0-98.0); Platelet Count 216 10x3/uL (130-400); Red Blood Cell (RBC) Count 3.15 mill/uL (4.70-6.10); White Blood Cell (WBC) Count 6.69 10x3/uL (4.8-10.8)
[2024-12-10 04:19] LABS: Anion Gap 13 mmol/L (10-20); BUN (Urea Nitrogen) 20 mg/dL (8.4-25.7); Calc. Creatinine Clearance 95 mL/min (70-130); Calcium 10.2 mg/dL (7.8-10.44); Carbon Dioxide 34 mmol/L (23-31); Chloride 90 mmol/L (98-107); Glucose 80 mg/dL (80-115); Magnesium 1.5 mg/dL (1.6-2.6); Potassium 3.7 mmol/L (3.5-5.1); Sodium 133 mmol/L (136-145)
[2024-12-10 04:36] LABS: Anisocytosis SLIGHT = 6-15 cells HPF (0-5); Platelet Adequacy Comment Platelets Normal; Polychromasia SLIGHT = 2-3 cells HPF (0-2); Reflex for Review?? YES
[2024-12-10] MEDS: Albumin 25% 25 GM (100 mL) BOT IVPB SCH (05:28)
[2024-12-10] MEDS: Magnesium 2 GM/50 ML(in water) 2 GM in Premix 1 BAG IVPB SCH (10:25)
[2024-12-10] MEDS: NOREPINEPHRINE 8 MG/250 ML-D5W 250 ML ONE (14:03)
[2024-12-10] MEDS: Phenylephrine 40 MG/NS 250 ML 250 ML ONE (14:21)
[2024-12-10] MEDS ORDERED: SUCCINYLCHOLINE/SOD CL,ISO/PF 200 MG/10 ML SYRINGE FS ONE (14:48)
[2024-12-10] MEDS ORDERED: Lidocaine 1% PF 5 ML VIAL ONE (14:48)
[2024-12-10] MEDS ORDERED: PROPOFOL 20 ML ONE (14:48)
[2024-12-10] MEDS ORDERED: Rocuronium Bromide 10 MG/ML (10ML VIAL) ONE (14:48)
[2024-12-10 14:57] LABS: Actual Bicarbonate (HCO3a) 32.4 mEq/L (22-28); Base Excess (BEa) 7.0 mEq/L (-2.0 to +3.0); CO2 Tension 50.5 mmHg (35.0-45.0); Calcium, Ionized (arterial) 1.23 mmol/L (1.12-1.30); Hematocrit-ABG 30 % (42.0-52.0); Hemoglobin (Hb) 10.3 g/dL (14.0-18.0); O2 Tension (PaO2), arterial 70.2 mmHg (> 80.0); Potassium - ABG Lab 3.14 mmol/L (3.70-5.30); pH, Arterial 7.425 (7.35-7.45)
[2024-12-10 15:00] LABS: Puncture Site Right Radial artery
[2024-12-10 15:01] LABS: ALV-art Gradient 472.725 mmHg (0-20)
[2024-12-10] MEDS ORDERED: Metoprolol Tartrate 5 MG (5 mL) VIAL ONE (15:02)
[2024-12-10] MEDS ORDERED: Etomidate 40 MG (20 mL) VIAL ONE (15:29)
[2024-12-10 15:44] LABS: ALT (SGPT) 8 U/L (Less than 45); AST (SGOT) 49 U/L (11-34); Albumin 2.6 g/dL (3.1-4.5); Alkaline Phosphatase 105 U/L (40-110); Anion Gap 19 mmol/L (10-20); BUN (Urea Nitrogen) 20 mg/dL (8.4-25.7); Bilirubin, Total 0.8 mg/dL (0.3-1.2); Calc. Creatinine Clearance 98 mL/min (70-130); Calcium 10.1 mg/dL (7.8-10.44); Carbon Dioxide 29 mmol/L (23-31); Chloride 91 mmol/L (98-107); Globulin 3.6 g/dL (2.4-3.5); Glucose 68 mg/dL (80-115); Magnesium 1.5 mg/dL (1.6-2.6); Potassium 3.7 mmol/L (3.5-5.1); Sodium 135 mmol/L (136-145)
[2024-12-10 16:18] LABS: Hematocrit 28.6 % (42.0-52.0); Hemoglobin 9.6 g/dL (14.0-18.0); Mean Corpuscular Hemoglobin 33.3 pg (27.0-31.0); Mean Corpuscular Volume 99.3 fL (78.0-98.0); Platelet Count 244 10x3/uL (130-400); Red Blood Cell (RBC) Count 2.88 mill/uL (4.70-6.10); White Blood Cell (WBC) Count 8.47 10x3/uL (4.8-10.8)
[2024-12-10] MEDS: Phenylephrine 40 MG/NS 250 ML 250 ML IVPB SCH (16:35)
[2024-12-10] MEDS ORDERED: Propofol BOLUS 1,000 MG/100 ML VIAL IV PRN (16:45)
[2024-12-10] MEDS ORDERED: DISCONTINUE PREVIOUS NARCOTIC PAIN MEDICATIONS AND BENZODIAZEPINES FS SCH (16:45)
[2024-12-10] MEDS ORDERED: Fentanyl BOLUS 100 ML IVPB PRN (16:45)
[2024-12-10] MEDS: Ventilator Sedation Protocol 1 EACH FS ONE (16:48)
[2024-12-10 18:27] LABS: Platelet Adequacy Comment Platelets Normal; Polychromasia SLIGHT = 2-3 cells HPF (0-2); Smudge Cells 4.8 %; Toxic Granulation MODERATE
[2024-12-11 07:39] LABS: Actual Bicarbonate (HCO3a) 32.8 mEq/L (22-28); Base Excess (BEa) 8.4 mEq/L (-2.0 to +3.0); CO2 Tension 45.3 mmHg (35.0-45.0); Calcium, Ionized (arterial) 1.19 mmol/L (1.12-1.30); Hematocrit-ABG 31 % (42.0-52.0); Hemoglobin (Hb) 10.4 g/dL (14.0-18.0); Potassium - ABG Lab 3.20 mmol/L (3.70-5.30); pH, Arterial 7.478 (7.35-7.45)
[2024-12-11 07:44] LABS: ALV-art Gradient 394.975 mmHg (0-20); O2 Tension (PaO2), arterial 47.5 mmHg (> 80.0); Puncture Site Right Brachial art
[2024-12-11] MEDS: Pantoprazole 40 MG VIAL IVP SCH (09:27)
[2024-12-11 11:10] LABS: Hematocrit 29.3 % (42.0-52.0); Hemoglobin 9.9 g/dL (14.0-18.0); Mean Corpuscular Hemoglobin 31.8 pg (27.0-31.0); Mean Corpuscular Volume 94.2 fL (78.0-98.0); Platelet Count 217 10x3/uL (130-400); Red Blood Cell (RBC) Count 3.11 mill/uL (4.70-6.10); White Blood Cell (WBC) Count 5.00 10x3/uL (4.8-10.8)
[2024-12-11 11:30] LABS: Anion Gap 15 mmol/L (10-20); BUN (Urea Nitrogen) 27 mg/dL (8.4-25.7); Calc. Creatinine Clearance 81 mL/min (70-130); Calcium 9.2 mg/dL (7.8-10.44); Carbon Dioxide 31 mmol/L (23-31); Chloride 95 mmol/L (98-107); Glucose 75 mg/dL (80-115); Magnesium 1.4 mg/dL (1.6-2.6); Potassium 3.5 mmol/L (3.5-5.1); Sodium 137 mmol/L (136-145)
[2024-12-11 12:11] LABS: Dohle Bodies SLIGHT; Platelet Adequacy Comment Platelets Normal; Polychromasia SLIGHT = 2-3 cells HPF (0-2); Smudge Cells 3.3 %; Target Cells SLIGHT = 2-5 cells HPF (0-1); Toxic Granulation SLIGHT
[2024-12-11 12:15] VITALS: BMI 30.9
[2024-12-11] MEDS: Magnesium Sulfate In Water 4 GM in Premix 1 BAG IVPB SCH (12:22)
[2024-12-11] MEDS: Potassium Chloride 20 MEQ in Premix 1 BAG IVPB SCH (15:28)
[2024-12-11] MEDS: Ketorolac Tromethamine 30 MG (1 mL) VIAL IVP SCH (18:38)
[2024-12-11] MEDS ORDERED: Ketorolac Tromethamine 30 MG (1 mL) VIAL IVP PRN (19:04)
[2024-12-11] MEDS ORDERED: Vancomycin 1 GM in Premix 1 BAG IVPB SCH (19:08)
[2024-12-11] MEDS: VANCOMYCIN 2 GRAM/400 ML BAG 2 GM in Premix 1 BAG IVPB SCH (20:15)
[2024-12-11] MEDS: Albumin 25% 25 GM (100 mL) BOT IVPB SCH (22:32)
[2024-12-11] MEDS: Furosemide 20 MG (2 mL) VIAL SLOW IVP SCH (22:32)
[2024-12-12 05:04] LABS: ALT (SGPT) 29 U/L (Less than 45); AST (SGOT) 101 U/L (11-34); Albumin 2.3 g/dL (3.1-4.5); Alkaline Phosphatase 132 U/L (40-110); Anion Gap 19 mmol/L (10-20); BUN (Urea Nitrogen) 34 mg/dL (8.4-25.7); Bilirubin, Total 1.0 mg/dL (0.3-1.2); Calc. Creatinine Clearance 54 mL/min (70-130); Calcium 8.7 mg/dL (7.8-10.44); Carbon Dioxide 21 mmol/L (23-31); Chloride 97 mmol/L (98-107); Globulin 3.4 g/dL (2.4-3.5); Glucose 71 mg/dL (80-115); Magnesium 2.7 mg/dL (1.6-2.6); Potassium 4.1 mmol/L (3.5-5.1); Sodium 133 mmol/L (136-145)
[2024-12-12 05:44] LABS: Hematocrit 32.5 % (42.0-52.0); Hemoglobin 10.3 g/dL (14.0-18.0); Mean Corpuscular Hemoglobin 31.2 pg (27.0-31.0); Mean Corpuscular Volume 98.5 fL (78.0-98.0); Platelet Count 276 10x3/uL (130-400); Red Blood Cell (RBC) Count 3.30 mill/uL (4.70-6.10); White Blood Cell (WBC) Count 5.53 10x3/uL (4.8-10.8)
[2024-12-12 07:33] VITALS: BP 70/51
[2024-12-12 07:40] LABS: Anisocytosis MARKED = >30 cells HPF (0-5); Burr Cells SLIGHT = 2-5 cells HPF (0-1); Macrocytosis MODERATE=16-30 cells HPF (0-5); Nucleated RBC (Manual Ct) 2 % (0); Plasma Cells 1 % (0-0); Platelet Adequacy Comment Platelets Normal; Polychromasia MODERATE = 3-4 cells HPF (0-2)
[2024-12-12 07:54] VITALS: TEMP 102
[2024-12-12] MEDS: Glycopyrrolate 0.4 MG/ 2 ML VIAL SLOW IVP PRN (08:30)
[2024-12-12] MEDS ORDERED: Vancomycin 1.25 GM / NS 250 ML VIAL-2-BAG IVPB SCH (18:00)
== END 2024-12-12 09:20 | disposition expired | DRG 871 ==
LOC: ERS 18:36 → SUATTDRO 18:36 → ERHOLD 12-05 00:07 → CCU 12-05 02:41 → MSONC 12-07 13:59 → IMCU/EMU 12-09 15:32 → CCU 12-10 16:23
PROVIDERS: ADMIT Internal Medicine; ATTEND Internal Medicine
PROC: 06HY33Z Insertion of Infusion Device into Lower Vein, Percutaneous Approach (ICD-10-PCS; 2024-12-05)
PROC: 3E04329 Introduction of Other Anti-infective into Central Vein, Percutaneous Approach (ICD-10-PCS; 2024-12-05)
PROC: 3E043XZ Introduction of Vasopressor into Central Vein, Percutaneous Approach (ICD-10-PCS; 2024-12-05)
PROC: 05HY33Z Insertion of Infusion Device into Upper Vein, Percutaneous Approach (ICD-10-PCS; 2024-12-07)
PROC: 4A133R1 Monitoring of Arterial Saturation, Peripheral, Percutaneous Approach (ICD-10-PCS; principal; 2024-12-09)
PROC: 3E03329 Introduction of Other Anti-infective into Peripheral Vein, Percutaneous Approach (ICD-10-PCS; 2024-12-09)
PROC: 3E033XZ Introduction of Vasopressor into Peripheral Vein, Percutaneous Approach (ICD-10-PCS; 2024-12-09)
PROC: 30233J1 Transfusion of Nonautologous Serum Albumin into Peripheral Vein, Percutaneous Approach (ICD-10-PCS; 2024-12-09)
PROC: 5A09357 Assistance with Respiratory Ventilation, Less than 24 Consecutive Hours, Continuous Positive Airway Pressure (ICD-10-PCS; 2024-12-09)
PROC: 05HY33Z Insertion of Infusion Device into Upper Vein, Percutaneous Approach (ICD-10-PCS; 2024-12-10)
PROC: 0BC38ZZ Extirpation of Matter from Right Main Bronchus, Via Natural or Artificial Opening Endoscopic (ICD-10-PCS; 2024-12-10)
PROC: 0T9B70Z Drainage of Bladder with Drainage Device, Via Natural or Artificial Opening (ICD-10-PCS; 2024-12-10)
PROC: 3E0G76Z Introduction of Nutritional Substance into Upper GI, Via Natural or Artificial Opening (ICD-10-PCS; 2024-12-11)
DX: A41.9 Sepsis, unspecified organism (principal); J18.9 Pneumonia, unspecified organism; R65.21 Severe sepsis with septic shock; J96.21 Acute and chronic respiratory failure with hypoxia; J96.22 Acute and chronic respiratory failure with hypercapnia; J69.0 Pneumonitis due to inhalation of food and vomit; R64 Cachexia; N17.9 Acute kidney failure, unspecified; M62.82 Rhabdomyolysis; I24.89 Other forms of acute ischemic heart disease; I50.32 Chronic diastolic (congestive) heart failure; R04.2 Hemoptysis; E87.20 Acidosis, unspecified; K56.7 Ileus, unspecified; Z51.5 Encounter for palliative care; Z66 Do not resuscitate; R19.7 Diarrhea, unspecified; M25.561 Pain in right knee; R13.12 Dysphagia, oropharyngeal phase; E03.9 Hypothyroidism, unspecified; I11.0 Hypertensive heart disease with heart failure; E87.6 Hypokalemia; E78.5 Hyperlipidemia, unspecified; F10.10 Alcohol abuse, uncomplicated; F39 Unspecified mood [affective] disorder; N30.90 Cystitis, unspecified without hematuria; J98.6 Disorders of diaphragm; J98.09 Other diseases of bronchus, not elsewhere classified; I48.91 Unspecified atrial fibrillation; Z93.1 Gastrostomy status; Z90.89 Acquired absence of other organs; Z98.890 Other specified postprocedural states; Z79.51 Long term (current) use of inhaled steroids; Z85.828 Personal history of other malignant neoplasm of skin; Z79.890 Hormone replacement therapy; Z99.81 Dependence on supplemental oxygen; Z87.01 Personal history of pneumonia (recurrent); Z78.1 Physical restraint status; Z68.31 Body mass index [BMI] 31.0-31.9, adult; Z91.81 History of falling; Z92.3 Personal history of irradiation
CPT/HCPCS: 36415; 36416; 36556; 36600; 70450; 71045; 71275; 74018; 74177; 80048; 80053; 80202; 81001; 82550; 82565; 82805; 83605; 83690; 83735; 83880; 84100; 84145; 84484; 85025; 85060; 87040; 87070; 87081; 87149; 87205; 93005; 93010; 94002; 94003; 94640; 94660; 96365; 96366; 96368; 96375; 96376; J0282; J0692; J1650; J1720; J1885; J1940; J2060; J2185; J2250; J2270; J2272; J2405; J2470; J2543; J2704; J2919; J3010; J3373; J3375; J3475; J3480; J7030; J7070; J7512; J7620; P9047; Q9967